=== PATIENT | male | born 1965 | race Caucasian/White ===

== ENCOUNTER 2023-04-04 13:57 | Emergency (ER) | payer BC ==
[2023-04-04 14:31] LABS: BASOPHILS % (AUTO) 0.7 %; EOSINOPHILS # (AUTO) 0.2 10^3/uL (0.0-0.7); EOSINOPHILS % (AUTO) 4.1 %; HCT - HEMATOCRIT 39.6 % (42.0-52.0); HGB - HEMOGLOBIN 13.6 g/dL (14.0-18.0); LYMPHOCYTES # (AUTO) 0.8 10^3/uL (1.5-3.5); LYMPHOCYTES % (AUTO) 18.1 %; MEAN CORPUSCULAR HEMOGLOBIN 34.2 pg (27.0-31.0); MEAN CORPUSCULAR HGB CONC 34.3 g/dL (32.0-36.0); MEAN CORPUSCULAR VOLUME 99.5 fL (80.0-94.0); MEAN PLATELET VOLUME 11.8 fL (7.4-11.4); MONOCYTES # (AUTO) 0.4 10^3/uL (0.0-1.0); MONOCYTES % (AUTO) 9.8 %; NEUTROPHILS # (AUTO) 2.9 10^3/uL (1.5-6.6); NEUTROPHILS % (AUTO) 67.1 %; PLT - PLATELET COUNT 80 10^3/uL (130-450); RED BLOOD COUNT 3.98 10^6/uL (4.70-6.10); WHITE BLOOD COUNT 4.4 x10^3/uL (4.8-10.8)
[2023-04-04 14:32] VITALS: O2SAT 100
[2023-04-04 14:43] LABS: ALBUMIN 4.4 g/dL (3.2-5.5); ALBUMIN/GLOBULIN RATIO 1.8 (1.0-2.2); BILIRUBIN,TOTAL 1.5 mg/dL (0.2-1.0); CALCIUM 9.3 mg/dL (8.5-10.3); CREATININE 0.9 mg/dL (0.6-1.3); POTASSIUM 3.9 mmol/L (3.5-4.5); TOTAL PROTEIN 6.8 g/dL (6.4-8.9)
[2023-04-04 14:50] LABS: TROPONIN I HIGH SENSITIVITY 3.4 ng/L (2.3-19.7)
--- NOTE | 2023-04-04 15:09 | XRAY Report ---
PROCEDURE: Chest 1 View X-Ray INDICATIONS: Chest pain TECHNIQUE: One view of the chest was acquired. COMPARISON: None. FINDINGS: Surgical changes and devices: None. Lungs and pleura: No pleural effusions or pneumothorax. Lungs are clear. Mediastinum: Mediastinal contours appear normal. Heart size is at the upper limits of normal. Bones and chest wall: No suspicious bony lesions. Overlying soft tissues appear unremarkable. IMPRESSION: Heart size at the upper limits of normal. Clear lungs. No focal infiltrates are seen. Reviewed by: Steve Huynh MD on 04/04/2023 2:08 PM MADELYN Approved by: Steve Huynh MD on 04/04/2023 2:08 PM MADELYN Station ID: [id number]
--- NOTE | 2023-04-04 15:24 | ED Physician Documentation ---
History of Present Illness - Stated complaint Stated Complaint: DISORIENTED,SWEATING - Chief complaint Chief Complaint: Cardiac - History obtained from History obtained from: Patient - History of Present Illness Timing: Today Pain level max: 0 Pain level now: 0 - Additonal information Additional information: Patient is a 58-year-old male who presents to the emergency department stating that he had about a 20-minute episode that occurred about 3 hours prior to arrival where he felt sweaty his face was flushed and he had some general confusion. No difficulty with speech or word finding. No slurred speech. No focal neurological deficits. He states he just felt confused. He knew who he was and where he was, but reached into his pocket for his phone and pulled out his wallet. No numbness or tingling. The episode resolved after eating a bag of M&Ms. He states he had not had anything to eat or drink since last night. Currently is asymptomatic. He takes losartan and propanolol at home for hypertension. Is on doxycycline for rosacea. No cardiac history. No history of strokes. Review of Systems Constitutional: denies: Fever, Chills Throat: denies: Sore throat Cardiac: denies: Chest pain / pressure, Palpitations Respiratory: denies: Dyspnea, Cough, Wheezing GI: denies: Abdominal Pain, Abdominal Swelling, Nausea, Vomiting, Diarrhea Skin: denies: Rash Musculoskeletal: denies: Neck pain, Back pain Neurologic: denies: Headache PD PAST MEDICAL HISTORY - Past Medical History Past Medical History: Yes Cardiovascular: Hypertension Endocrine/Autoimmune: Other ("Prediabetes") GI: Cirrhosis - Past Surgical History Past Surgical History: No - Present Medications Home Medications: Ambulatory Orders Medication Instructions Recorded Confirmed Doxycycline Hyclate 100 mg PO DAILY 04/04/23 04/04/23 Losartan Potassium [Cozaar] 100 mg PO DAILY 04/04/23 04/04/23 Propranolol HCl 20 mg PO DAILY 04/04/23 04/04/23 - Allergies Allergies/Adverse Reactions: Allergies Allergy/AdvReac Type Severity Reaction Status Date / Time No Known Drug Allergies Allergy Verified 04/04/23 14:01 - Social History Does the pt smoke?: No Smoking Status: Never smoker PD ED PE NORMAL - Vitals Vital signs reviewed: Yes - General General: Alert and oriented X 3, No acute distress - HEENT HEENT: PERRL, Moist mucous membranes - Neck Neck: Supple, no meningeal sign - Cardiac Cardiac: RRR, No murmur - Respiratory Respiratory: Clear bilaterally - Abdomen Abdomen: Normal bowel sounds, Soft, Non tender, Non distended - Back Back: No spinal TTP - Derm Derm: Warm and dry, No rash - Extremities Extremities: No deformity, No edema - Neuro Neuro: Alert and oriented X 3, fur blower 2-12 intact, No motor deficit, No sensory deficit, Normal speech Eye Opening: Spontaneous Motor: Obeys Commands Verbal: Oriented GCS Score: 15 - Psych Psych: Normal mood, Normal affect - Free text exam Free text exam: 1510 - NIH stroke scale 0 Results - Vitals Vitals: Vital Signs - 24 hr 04/04/23 04/04/23 04/04/23 14:02 14:05 17:18 Temperature 36.5 C 36.2 C L Heart Rate 47 L 54 L 50 L Respiratory 16 13 16 Rate Blood Pressure 151/69 H 149/83 H 133/72 H O2 Saturation 98 100 100 Oxygen O2 Source Room air - EKG (time done) 1451 EKG releavant findings:: EKG personally interpreted by author of this note. Relevant findings are: Rate: Rate (enter#) (50) Rhythm: NSR [place]: Normal Intervals: Normal ND QRS: Normal Ischemia: Normal ST segments - Labs Labs: Laboratory Tests 04/04/23 04/04/23 04/04/23 14:25 14:25 16:40 WBC 4.4 L RBC 3.98 L Hgb 13.6 L Hct 39.6 L MCV 99.5 H MCH 34.2 H MCHC 34.3 RDW 13.0 Plt Count 80 L MPV 11.8 H Neut # (Auto) 2.9 Lymph # (Auto) 0.8 L [place] # (Auto) 0.4 Eos # (Auto) 0.2 Baso # (Auto) 0.0 Absolute Nucleated RBC 0.00 Nucleated RBC % 0.0 Sodium 138 Potassium 3.9 Chloride 104 Carbon Dioxide 29 Anion Gap 5.0 L BUN 10 Creatinine 0.9 Estimated GFR (MDRD) 87 L Glucose 123 H Calcium 9.3 Total Bilirubin 1.5 H AST 29 ALT 28 Alkaline Phosphatase 94 Troponin I High Sens 3.4 3.5 Total Protein 6.8 Albumin 4.4 Globulin 2.4 Albumin/Globulin Ratio 1.8 Lipase 44 - Rads (name of study) head CT Relevant Findings:: Final report received cxr Relevant Findings:: Final report received PD Medical Decision Making - ED course Complexity details: reviewed results, re-evaluated patient, considered differential, d/w patient, d/w family ED course: Patient is a 58-year-old male presents to the emergency department after an episode of sweating, transient confusion. This brief episode resolved after eating M&Ms. The patient did not take his propanolol today. NIH stroke scale is zero. EKG does not show any acute abnormalities. The patient remained fully asymptomatic in the emergency department. Head CT and chest x-ray do not show any acute abnormalities. He does have a mild pancytopenia, unclear if this is chronic. No old laboratory values are available here for comparison. He will follow up with his primary care provider regarding this when he returns home. Possible hypoglycemic episode? He did not take his propranolol today. He may have had some hypoglycemia in the past, but the symptoms were masked by the propanolol.The patient is currently symptomatic. We will have him follow up with his doctor for further care. Patient counseled regarding signs and symptoms for which I believe and urgent re-evaluation would be necessary. Patient with good understanding of and agreement to plan and is comfortable going home at this timeThis document was made in part using voice recognition software. While efforts are made to proofread this document, sound alike and grammatical errors may occur. Departure - Departure Disposition: 01 Home, Self Care Clinical Impression: Altered mental status Qualifiers: Altered mental status type: unspecified Qualified Code(s): R41.82 - Altered mental status, unspecified Condition: Good Instructions: ED Altered Loc Follow-Up: your,doctor in 1 week [Other] Comments: The cause of your symptoms is unclear today. It is recommended that you follow- up closely with your PCP for further care. They may want to place you on a continuous glucose monitor to see if you do indeed have hypoglycemia. As we discussed the propanolol can mask symptoms of hypoglycemia or low blood sugar. Please continue your current medications at home, make sure you eat regularly and return if you worsen. Your testing today does not reveal any acute abnormalities. Your EKG, head CT, chest x-ray and laboratory testing did not show any significant abnormalities. Forms: PCP List Discharge Date/Time: 04/04/23 17:18
--- NOTE | 2023-04-04 16:38 | CT Report ---
PROCEDURE: HEAD WO INDICATIONS: confusion TECHNIQUE: Noncontrast 4.5 mm thick angled axial sections acquired from the foramen magnum to the vertex. For r adiation dose reduction, the following was used: automated exposure control, adjustment of mA and/or kV according to patient size. COMPARISON: None. FINDINGS: Image quality: Excellent. CSF spaces: Basal cisterns are patent. No extra-axial fluid collections. Ventricles are normal in size and shape. Brain: No midline shift. No intracranial masses or hemorrhage. Rodriguez-white matter interface is norm al. Skull and face: Calvarium and visualized facial bones are intact, without suspicious lesions. Sinuses: Visualized sinuses and mastoids are clear. IMPRESSION: No acute intracranial pathology. Reviewed by: Gabino Reynolds MD on 04/04/2023 4:37 PM PDT Approved by: aGbino Reynolds MD on 04/04/2023 4:37 PM PDT Station ID: [id number]
[2023-04-04 17:23] VITALS: BP 133/72
== END 2023-04-04 17:18 | disposition home or self-care (01) ==
LOC: ED 13:57
DX: R41.82 Altered mental status, unspecified (principal); I10 Essential (primary) hypertension
CPT/HCPCS: 36415; 80053; 83690; 84484; 85025; 93005; 99283; 99284